=== PATIENT | male | born 1965 | race Caucasian/White ===

== ENCOUNTER → 2017-05-08 | Day surgery (SDC) | payer OTHER ==
[~2017-05-08] MED LIST: ASPI-630 PO; IV RINGERS,LACTATED 1000ML 1,000 ML IV SCH; LIDOCAINE 1% 1 ML SYRINGE. ID PRN; LIDOCAINE 2% PF Vial for OR 5 ML VIAL. ONE; MIDAZOLAM HCL/PF 2 MG/2 ML VIAL. IV PRN; PROPOFOL 0 ML IV ONE; PROPOFOL 20 ML IV ONE; SIMV20TA PO; fentaNYL PF VIAL 100 MCG/2 ML VIAL IV PRN
[2017-05-08 08:38] VITALS: BP 108/75
== END | disposition home or self-care (01) ==
LOC: SURG 07:09
PROVIDERS: ATTEND Internal Medicine Gastroenterology
DX: Z09 Encounter for follow-up examination after completed treatment for conditions other than malignant neoplasm (principal); Z86.010 Personal history of colon polyps; K64.0 First degree hemorrhoids; E78.00 Pure hypercholesterolemia, unspecified; Z72.89 Other problems related to lifestyle; Z91.018 Allergy to other foods
CPT/HCPCS: 45378; J2704; J2001